=== PATIENT | female | born 1995 | race Caucasian/White ===

== ENCOUNTER 2017-10-22 16:15 | Emergency (ER) | payer MEDICAID ==
[2013-12-13 10:34] VITALS: BMI 22.8
[~2017-10-22 16:15] MED LIST: BACTRIM DS TABL1 TAB PO; HYDROCODONE-APA1 TAB PO; IBUPROFEN600 MG PO; PERCOCET 10/3251 TA1 PO
== END 2017-10-22 18:26 | disposition home or self-care (01) ==
LOC: D.ER 16:15
DX: L03.317 Cellulitis of buttock (principal); F17.200 Nicotine dependence, unspecified, uncomplicated

== ENCOUNTER 2018-02-21 14:41 | Emergency (ER) | payer MEDICAID ==
[~2018-02-21] VITALS: Ht 167.6 cm; Wt 56.8 kg
[2018-02-21 14:53] VITALS: BP 138/87; Ht 167.6 cm; Wt 56.8 kg
[2018-02-21 15:17] LABS: BASOPHILS 0.4 % (0-2); EOSINOPHILS 1.1 % (0-7); HEMATOCRIT 38.8 % (36.0-48.0); HEMOGLOBIN 13.7 g/dL (12-16); IMMATURE GRANULOCYTES 0.2 % (0-5); LYMPHOCYTES 18.4 % (15-50); MCH 32.6 pg (26.0-34.0); MCHC 35.3 g/dL (31.0-37.0); MCV 92.4 fL (80.0-100.0); MEAN PLATELET VOLUME 11.1 fL (7.4-10.4); MONOCYTES 5.4 % (2-11); NEUTROPHILS 74.5 % (40-80); PLATELET COUNT 199 10x3/uL (130-400); RDW 12.4 % (11.5-14.5); WBC 9.7 10x3/uL (4.8-10.8)
[2018-02-21 15:35] LABS: CHLORIDE - SERUM 105 mmol/L (98-107); POTASSIUM - SERUM 3.9 mmol/L (3.5-5.1)
[2018-02-21 15:56] LABS: ALKALINE PHOSPHATASE 54 U/L (46-116); ALT (SGPT) 25 U/L (10-68); BILIRUBIN - TOTAL 0.63 mg/dL (0.2-1.3); CALC OSMOLALITY 280 mosm/kg (275-300); CALCIUM 9.4 mg/dL (8.5-10.1); CARBON DIOXIDE 29.7 mmol/L (21.0-32.0); CREATININE - SERUM 0.8 mg/dL (0.6-1.3); GLUCOSE 84 mg/dL (74-106); PROTEIN - SERUM 7.5 g/dL (6.4-8.2); SODIUM 142 mmol/L (136-145); UREA NITROGEN 9 mg/dL (7-18); eGFR NON AFRICAN AMERICAN > 90 mL/min (90-120)
[2018-02-21 15:57] LABS: AMYLASE - SERUM 51 U/L (25-115); LIPASE 103 U/L (73-393)
[2018-02-21 16:01] LABS: TROPONIN-I < 0.017 ng/mL (0.000-0.060)
[2018-02-21 16:06] LABS: APPEARANCE CLEAR (CLEAR); BILIRUBIN NEGATIVE (NEGATIVE); COLOR YELLOW (YELLOW); GLUCOSE NEGATIVE (NEGATIVE); KETONE NEGATIVE (NEGATIVE); NITRITE NEGATIVE (NEGATIVE); PROTEIN NEGATIVE (NEGATIVE); UROBILINOGEN NORMAL (NORMAL)
[2018-02-21 16:08] LABS: HCG URINE NEGATIVE (NEGATIVE)
== END 2018-02-21 17:20 | disposition left against medical advice (07) ==
LOC: D.ER 14:41
PROVIDERS: Family Medicine
DX: R10.9 Unspecified abdominal pain (principal)